=== PATIENT | female | born 1970 | race Caucasian/White ===

== ENCOUNTER 2021-01-29 09:14 | Emergency (ER) | payer MEDICAID ==
[~2021-01-29] VITALS: Ht 165.1 cm; Wt 90.3 kg
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
[2021-01-29] MEDS ORDERED: IBUPROFEN 600 MG TABLET PO ONE (09:30)
[2021-01-29] MEDS ORDERED: IBUPROFEN 600 MG TABLET ONE (09:30)
[2021-01-29 11:13] VITALS: BP 127/75
--- NOTE | 2021-01-29 11:13 | NUR ---
Patient discharged to home in stable condition. Written and verbal after care instructions given. Patient verbalizes understanding of instruction.
== END 2021-01-29 11:14 | disposition home or self-care (01) ==
LOC: ER 09:48
DX: R07.89 Other chest pain (principal); M54.2 Cervicalgia; V49.59XA Passenger injured in collision with other motor vehicles in traffic accident, initial encounter; Y93.89 Activity, other specified; Y92.488 Other paved roadways as the place of occurrence of the external cause; Y99.8 Other external cause status
CPT/HCPCS: 71045-TC; 72040-TC